=== PATIENT | female | born 1985 | race Two or more races ===

== ENCOUNTER → 2019-12-21 16:30 | Outpatient (CLI) | payer OTHER ==
[~2019-12-21 16:30] MED LIST: SYNTHROID88 MCG
== END | disposition home or self-care (01) ==
LOC: LAB 16:30
PROVIDERS: ATTEND Emergency Medicine Pediatric Emergency Medicine
DX: Z20.828 Contact with and (suspected) exposure to other viral communicable diseases (principal); Z03.818 Encounter for observation for suspected exposure to other biological agents ruled out

== ENCOUNTER → 2020-11-28 11:26 | Outpatient (CLI) | payer OTHER | END | disposition home or self-care (01) | LOC: LAB 11:26 | PROVIDERS: ATTEND Emergency Medicine Pediatric Emergency Medicine | DX: Z03.818 Encounter for observation for suspected exposure to other biological agents ruled out (principal) ==

== ENCOUNTER 2021-01-26 05:56 | Day surgery (SDC) | payer OTHER | END 2021-01-26 13:45 | disposition home or self-care (01) | LOC: CIR.AMB 05:56 | PROVIDERS: ATTEND Otolaryngology | DX: H90.0 Conductive hearing loss, bilateral (principal); H68.123 Intrinsic cartilagenous obstruction of Eustachian tube, bilateral; Z20.822 Contact with and (suspected) exposure to COVID-19 ==

== ENCOUNTER 2021-02-16 08:00 | Outpatient (CLI) | payer OTHER | END 2021-02-16 08:30 | disposition home or self-care (01) | LOC: PPH VACUNA 08:00 | PROVIDERS: ATTEND Emergency Medicine Pediatric Emergency Medicine | DX: Z23 Encounter for immunization (principal) ==

== ENCOUNTER 2021-04-29 15:18 | Emergency (ER) | payer OTHER ==
[~2021-04-29] VITALS: Ht 162.6 cm; Wt 90.7 kg
== END 2021-04-29 18:40 | disposition home or self-care (01) ==
LOC: ER 15:18
DX: B34.9 Viral infection, unspecified (principal); Z20.822 Contact with and (suspected) exposure to COVID-19

== ENCOUNTER 2021-09-24 09:03 | Outpatient (CLI) | payer OTHER | END 2021-09-24 09:08 | disposition home or self-care (01) | LOC: LAB 09:03 | PROVIDERS: ATTEND Anesthesiology Pain Medicine | DX: Z12.11 Encounter for screening for malignant neoplasm of colon (principal); E66.9 Obesity, unspecified; Z00.00 Encounter for general adult medical examination without abnormal findings; E03.9 Hypothyroidism, unspecified ==

== ENCOUNTER 2022-08-13 06:52 | Outpatient (CLI) | payer OTHER | END 2022-08-13 06:58 | disposition home or self-care (01) | LOC: LAB 06:52 | PROVIDERS: ATTEND Obstetrics & Gynecology | DX: E28.1 Androgen excess (principal); E03.9 Hypothyroidism, unspecified; E08.9 Diabetes mellitus due to underlying condition without complications; E78.00 Pure hypercholesterolemia, unspecified; N91.1 Secondary amenorrhea; N39.0 Urinary tract infection, site not specified; N93.8 Other specified abnormal uterine and vaginal bleeding ==

== ENCOUNTER 2022-08-23 14:01 | Outpatient (CLI) | payer OTHER | END 2022-08-23 14:02 | disposition home or self-care (01) | LOC: SONOGRAMA 14:01 | PROVIDERS: ATTEND Obstetrics & Gynecology | DX: N93.8 Other specified abnormal uterine and vaginal bleeding (principal) ==

== ENCOUNTER 2023-01-11 09:50 | Emergency (ER) | payer OTHER ==
[~2023-01-11] VITALS: Ht 162.6 cm; Wt 90.7 kg
== END 2023-01-11 12:02 | disposition home or self-care (01) ==
LOC: ER 09:50
DX: J98.8 Other specified respiratory disorders (principal); B97.89 Other viral agents as the cause of diseases classified elsewhere

== ENCOUNTER 2024-01-24 13:40 | Outpatient (CLI) | payer OTHER | END 2024-01-24 13:41 | disposition home or self-care (01) | LOC: RAD 13:40 | PROVIDERS: ATTEND Anesthesiology Pain Medicine | DX: M25.531 Pain in right wrist (principal) ==